=== PATIENT | male | born 1990 | race Two or more races ===

== ENCOUNTER → 2021-05-24 | Outpatient (CLI) | payer BC ==
--- NOTE | 2021-05-24 14:54 | REPVR ---
PROCEDURE INFORMATION: Exam: MR Lumbar Spine Without Contrast Exam date and time: 05/24/2021 12:04 PM Age: 31 years old Clinical indication: Low back pain; Additional info: M54.40 lumbbago w/ sciatica TECHNIQUE: Imaging protocol: Multiplanar magnetic resonance images of the lumbar spine without intravenous contrast. COMPARISON: No relevant prior studies available. FINDINGS: Vertebrae: There is no fracture or listhesis. Marrow signal is within normal limits. Spinal cord: Normal signal. No cord compression. L1-L2: No significant disc disease. No significant spinal canal stenosis. No neural foraminal stenosis. L2-L3: No significant disc disease. No significant spinal canal stenosis. No neural foraminal stenosis. L3-L4: No significant disc disease. No significant spinal canal stenosis. No neural foraminal stenosis. L4-L5: There is diffuse disc bulging with a prominent central component. There is ienm-rw-[id number] facet hypertrophy. There is mild canal stenosis. The neural foramina are patent. L5-S1: There is diffuse disc bulging. There is ovmw-gk-[id number] facet hypertrophy. The spinal canal and neural foramina are patent. Soft tissues: Unremarkable. IMPRESSION: Mild degenerative disc disease and spondylosis. No canal or neural foraminal compromise. Electronically signed by: Linda Quiros On 05/24/2021 14:54:34 PM
== END ==
LOC: M PLAIMG 11:09 → EDSEX 11:30
PROVIDERS: ATTEND Chiropractor
DX: M54.40 Lumbago with sciatica, unspecified side (principal)